=== PATIENT | female | born 1965 | race Caucasian/White ===

== ENCOUNTER 2018-08-24 05:49 | Observation (INO) | payer BC ==
[2018-08-24] MEDS ORDERED: Acetaminophen 500 MG Tab PO ONE (06:15)
[2018-08-24] MEDS ORDERED: Scopolamine 1.5 MG Transdermal Patch TOP SCH (06:15)
[2018-08-24] MEDS ORDERED: Gabapentin 300 MG Cap PO ONE (06:15)
[2018-08-24] MEDS: Nozin Nasal Sanitizer NASBOTH SCH ×3 (06:18→20:25)
[2018-08-24] MEDS: Lactated Ringers 1,000 ML IV SCH ×2 (06:18→22:24)
[2018-08-24] MEDS ORDERED: Povidone-Iodine 10% Soln 118.25 ML Bottle ONE (06:35)
[2018-08-24] MEDS ORDERED: ceFAZolin 2 GM in Premix Bag 1 BAG IV ONE (07:30)
[2018-08-24] MEDS ORDERED: Ondansetron 4 MG/2 ML SDV ONE (07:31)
[2018-08-24] MEDS ORDERED: Dexamethasone 4 MG/ML SDV ONE (07:31)
[2018-08-24] MEDS ORDERED: Propofol 200 MG/20 ML SDV ONE (07:31)
[2018-08-24] MEDS ORDERED: Glycopyrrolate 0.2 MG/ML 5 ML MDV ONE (07:31)
[2018-08-24] MEDS ORDERED: Neostigmine Methylsulfate 1 MG/ML 5 ML Syringe ONE (07:31)
[2018-08-24] MEDS ORDERED: Succinylcholine 200 MG/10 ML MDV ONE (07:31)
[2018-08-24] MEDS ORDERED: Rocuronium 50 MG/5 ML Vial ONE (07:31)
[2018-08-24] MEDS ORDERED: fentaNYL 250 MCG/5 ML SDV ONE (07:32)
[2018-08-24] MEDS ORDERED: Acetaminophen/HYDROcodone 325-5 MG Tab PO PRN (09:02)
[2018-08-24] MEDS ORDERED: Acetaminophen 325 MG Tab PO PRN (09:02)
[2018-08-24] MEDS ORDERED: Cyclobenzaprine 10 MG Tab PO PRN (09:06)
[2018-08-24] MEDS ORDERED: fentaNYL 100 MCG/2 ML SDV ONE (09:07)
[2018-08-24] MEDS ORDERED: hydrOXYzine HCl 100 MG/2 ML SDV IM ONE (09:30)
[2018-08-24] MEDS: Morphine 2 MG/ML Syringe IVPUSH PRN ×7 (09:39→17:13)
--- NOTE | 2018-08-24 10:38 | CR ---
Knee 1V or 2V Lt CLINICAL HISTORY: Postop arthroplasty FINDINGS: 3 views left knee show a medial hemiprosthesis. Components appear well seated. There is some periarticular patellar spurring. Impression: Patient status post placement of the medial knee hemiarthroplasty Osteoarthritic changes
[2018-08-24] MEDS: Acetaminophen/oxyCODONE 325-5 MG Tab PO PRN ×3 (10:42→20:24)
[2018-08-24] MEDS: SCOPOLAMINE PATCH CHECK TOP SCH (12:12)
--- NOTE | 2018-08-24 14:52 | PCM.OPNOTE ---
- General Post-Op/Procedure Note Date of Surgery/Procedure: 08/24/18 Operative Procedure(s): left knee, medial unicompartmental arthroplasty Findings: End stage OA with complete articular cartilage loss medial compartment. Pre Op Diagnosis: OA left knee, medial compartment Post-Op Diagnosis: same Primary Surgeon: Vignesh GOLDEN in mLs: 30 Complications: None Condition: Good Free Text/Narrative:: Intake & Output 08/23/18 08/24/18 08/24/18 22:59 06:59 14:59 Intake Total 240 Output Total 350 Balance -110 indications: Juliette is a 53-year-old female with a history of progressive left knee pain. Pain has gotten significantly worse over the past couple of months. She has failed conservative treatment.X-rays MRI and exam are consistent with end-stage osteoarthritis of the medial compartment of the knee.She now presents for medial unicompartmental arthroplasty. Risks, benefits and potential complications were discussed. She agrees to proceed. Procedure: After adequate anesthesia was obtained patient was placed supine with a tourniquet about the left upper thigh. Left leg was prepped and draped in a sterile fashion. The leg is exsanguinated and tourniquet inflated to 300 mg of mercury pressure. Incision is made just medial of midline from the superior pole of the patella to the tibial tubercle. This is carried down through the subcutaneous tissues. A medial parapatellar arthrotomy is performed. Mild effusion is present. Anterior horn of the medial meniscus is excised.Osteophyte is present along the medial edge of the femoral condyle and complete articular cartilage loss is present throughout the femoral condyle. An oscillating saw is used to remove the anterior lip of the tibia.The leg is extended and the extra medullary alignment jig is placed. This is secured with one pin in the tibia alignment and tension is set and the femoral and tibial guides are then secured with additional pins. Distal femoral cut is made with an oscillating saw. The femoral jig is removed.The knee is then flexed and proximal tibia is resected The jig was removed.Proximal tibia is sized to a #2 component. Femur is sized to aD component.Cutting jig is securedholes and remaining femoral cuts are then made. Tibial trial is tamped into position. Pedicle holes are drilled. The knee is then trialed with an 8 mm spacer.This provides excellent balance in flexion and extension with a 2 mm gap in both flexion and extension. Trials are removed. The knee is thoroughly irrigated with pulse lavage.The cut surfaces are dried andcomponents are cemented in place. Excess cement is removed.The knee is then held in full extension as the cement cures with the 8 mm spacer and the 2 [address].once the cement had cured the trial was removed and the final polyethylene is snapped into position. Balance is checked once again with excellent In flexion and extension.Knee is irrigated.Capsule was then closed with #1 Ethibond in a running fashion. Skin is closed with 2-0 Vicryl and 3-0 Monocryl. Steri-Strips are applied. A light compressive dressing is then placed. Patient tolerated the procedure well and there were no complications and she was taken from the operating room in stable condition.
[2018-08-24] MEDS: ceFAZolin 1 GM in Premix Bag 1 BAG IV SCH ×2 (14:55→22:24)
[2018-08-24] MEDS: Docusate Sodium 100 MG Cap PO PRN (17:13)
[2018-08-24] MEDS ORDERED: Nozin Nasal Sanitizer NASBOTH SCH (21:00)
[2018-08-25] MEDS: Acetaminophen/oxyCODONE 325-5 MG Tab PO PRN ×6 (02:37→23:20)
[2018-08-25] MEDS: Morphine 2 MG/ML Syringe IVPUSH PRN ×2 (03:29→09:16)
[2018-08-25] MEDS: buPROPion 150 MG Tab.ER PO SCH (08:00)
[2018-08-25] MEDS: Losartan 50 MG Tab PO SCH (08:00)
[2018-08-25] MEDS: Aspirin 81 MG Tab.EC PO SCH (08:00)
[2018-08-25] MEDS: Nozin Nasal Sanitizer NASBOTH SCH ×2 (08:00→21:00)
[2018-08-25] MEDS: SCOPOLAMINE PATCH CHECK TOP SCH (08:02)
[2018-08-25] MEDS ORDERED: Non-Formulary Medication 1 Each (Levothyroxine Sodium [Synthroid] 150 MCG) PO SCH (09:00)
[2018-08-25] MEDS: Docusate Sodium 100 MG Cap PO PRN ×2 (09:24→19:43)
[2018-08-26] MEDS: Acetaminophen/oxyCODONE 325-5 MG Tab PO PRN ×3 (03:25→11:39)
[2018-08-26 08:39] VITALS: BP 161/69
[2018-08-26] MEDS: Nozin Nasal Sanitizer NASBOTH SCH (08:41)
[2018-08-26] MEDS: Aspirin 81 MG Tab.EC PO SCH (08:41)
[2018-08-26] MEDS: buPROPion 150 MG Tab.ER PO SCH (08:41)
[2018-08-26] MEDS: Losartan 50 MG Tab PO SCH (08:41)
[2018-08-26] MEDS: SCOPOLAMINE PATCH CHECK TOP SCH (08:44)
== END 2018-08-26 12:45 | disposition home or self-care (01) ==
LOC: JP.SDS 05:49 → JP.2SS 09:02 → UNDOADMIN 09:02 → JP.2SS 09:02 → JP.SDS 08-25 11:10 → JP.2SS 08-25 11:11 → JP.MS 08-25 11:11 → JP.2SS 08-26 12:45 → UNDODISIN 08-26 12:45 → JP.SDS 08-26 12:45
PROVIDERS: ADMIT Specialist; ATTEND Specialist
DX: M17.12 Unilateral primary osteoarthritis, left knee (principal); M25.462 Effusion, left knee; I10 Essential (primary) hypertension; I45.10 Unspecified right bundle-branch block; E05.00 Thyrotoxicosis with diffuse goiter without thyrotoxic crisis or storm; E03.9 Hypothyroidism, unspecified; E78.2 Mixed hyperlipidemia; E66.01 Morbid (severe) obesity due to excess calories; Z68.42 Body mass index [BMI] 45.0-49.9, adult; Z88.8 Allergy status to other drugs, medicaments and biological substances; Z87.891 Personal history of nicotine dependence; Z79.899 Other long term (current) drug therapy
CPT/HCPCS: 27446; 73560; 96361; 96365; 96366; 97110; 97112; 97116; 97161; 97530; 97535; A9270; C1713; G0378; J0330; J0690; J1100; J2270; J2405; J2704; J2710; J3010; J3410; J3490; J7120; C1776

== ENCOUNTER 2022-09-18 00:59 | Emergency (ER) | payer BC ==
[2022-09-18] MEDS ORDERED: Sodium Chloride 0.9% 10 ML Syringe FLUSH PRN (01:26)
[2022-09-18] MEDS ORDERED: Pantoprazole 40 MG Vial IVPUSH ONE (01:34)
[2022-09-18] MEDS ORDERED: Sucralfate 1 GM Tab PO ONE (01:34)
[2022-09-18 01:48] LABS: BASOPHILS ABSOLUTE AUTO 0.05 K/uL (0.00-0.10); BASOPHILS PERCENT AUTO 0.9 % (0.1-1.3); EOSINOPHILS ABSOLUTE AUTO 0.15 K/uL (0.00-0.40); EOSINOPHILS PERCENT AUTO 2.8 % (0.0-5.4); HEMATOCRIT 41.8 % (34.3-46.0); HEMOGLOBIN 14.1 g/dL (11.2-15.5); IMMATURE GRAN PERCENT AUTO 0.4 % (0.0-0.7); LYMPHOCYTES ABSOLUTE AUTO 2.26 K/uL (0.8-3.3); LYMPHOCYTES PERCENT AUTO 41.5 % (11.4-47.7); MEAN CORPUSCULAR HEMOGLOBIN 29.8 pg (31.6-35.5); MEAN CORPUSCULAR HGB CONC 33.7 g/dL (31.6-35.5); MEAN CORPUSCULAR VOLUME 88.4 fL (81.4-99.0); MONOCYTES ABSOLUTE AUTO 0.43 K/uL (0.20-0.90); MONOCYTES PERCENT AUTO 7.9 % (3.3-12.6); NEUTROPHILS ABSOLUTE AUTO 2.54 K/uL (1.0-7.6); NEUTROPHILS PERCENT AUTO 46.5 % (40.0-78.1); PLATELET COUNT,PLT 184 K/uL (130-375); RED BLOOD CELL COUNT 4.73 M/uL (3.77-5.24); WHITE BLOOD CELL COUNT,WBC 5.5 K/uL (3.2-11.0)
[2022-09-18 01:58] LABS: ALANINE AMINOTRANSFERASE,ALT 21 U/L (12-78); ALBUMIN 3.2 g/dL (3.4-5.0); ALKALINE PHOSPHATASE 66 U/L (46-116); ASPARTATE AMNIOTRANSFERASE,AST 19 U/L (15-37); BILIRUBIN TOTAL 0.6 mg/dL (0.2-1.0); BLOOD UREA NITROGEN,BUN 16 mg/dL (7-18); CALCIUM 8.3 mg/dL (8.5-10.1); CARBON DIOXIDE,CO2 29 mmol/L (21-32); CHLORIDE,CL 101 mmol/L (100-108); CREATININE 0.9 mg/dL (0.6-1.0); EST CRCL DRUG DOSING (CG) 55.68 mL/min; ESTIMATED GFR 74 mL/min (>60); GLUCOSE RANDOM 160 mg/dL (74-106); LIPASE 121 U/L (73-393); PROTEIN TOTAL,TP 6.3 g/dL (6.4-8.2); SODIUM,NA 137 mmol/L (140-148)
[2022-09-18 02:26] LABS: ANION GAP 9.8 mmol/L (5.0-14.0); IMMATURE GRAN ABSOLUTE AUTO 0.02 K/uL (0.00-0.23); POTASSIUM,K 2.8 mmol/L (3.6-5.2)
[2022-09-18] MEDS ORDERED: Potassium Chloride 20 MEQ Tab.ER PO ONE (02:37)
[2022-09-18] MEDS ORDERED: Magnesium Oxide 400 MG Tab PO ONE (02:38)
[2022-09-18 02:58] VITALS: BP 150/76; PULSE 81
== END 2022-09-18 03:38 | disposition home or self-care (01) ==
LOC: JP.ED 00:59
DX: K29.70 Gastritis, unspecified, without bleeding (principal); T39.395A Adverse effect of other nonsteroidal anti-inflammatory drugs [NSAID], initial encounter; I45.2 Bifascicular block; E87.6 Hypokalemia; R73.9 Hyperglycemia, unspecified; Z88.8 Allergy status to other drugs, medicaments and biological substances
CPT/HCPCS: 36415; 74019; 80053; 83690; 84484; 85025; 93005; 99285; A9270; C9113; J3490; 93010; 99283

== ENCOUNTER 2023-11-10 09:39 | Inpatient (IN) | payer BC ==
[~2023-11-10 09:39] MED LIST: Midazolam 1 MG/ML 2 ML SDV ONE; Propofol 200 MG/20 ML SDV ONE; fentaNYL 100 MCG/2 ML SDV ONE
[2023-11-10 10:05] LABS: BASOPHILS ABSOLUTE AUTO 0.05 K/uL (0.00-0.10); BASOPHILS PERCENT AUTO 0.8 % (0.1-1.3); EOSINOPHILS ABSOLUTE AUTO 0.19 K/uL (0.00-0.40); EOSINOPHILS PERCENT AUTO 3.1 % (0.0-5.4); HEMATOCRIT 42.6 % (34.3-46.0); HEMOGLOBIN 14.6 g/dL (11.2-15.5); IMMATURE GRAN ABSOLUTE AUTO 0.02 K/uL (0.00-0.23); IMMATURE GRAN PERCENT AUTO 0.3 % (0.0-0.7); LYMPHOCYTES ABSOLUTE AUTO 2.06 K/uL (0.8-3.3); LYMPHOCYTES PERCENT AUTO 33.1 % (11.4-47.7); MEAN CORPUSCULAR HEMOGLOBIN 29.6 pg (31.6-35.5); MEAN CORPUSCULAR HGB CONC 34.3 g/dL (31.6-35.5); MEAN CORPUSCULAR VOLUME 86.2 fL (81.4-99.0); MONOCYTES ABSOLUTE AUTO 0.41 K/uL (0.20-0.90); MONOCYTES PERCENT AUTO 6.6 % (3.3-12.6); NEUTROPHILS ABSOLUTE AUTO 3.49 K/uL (1.0-7.6); NEUTROPHILS PERCENT AUTO 56.1 % (40.0-78.1); PLATELET COUNT,PLT 212 K/uL (130-375); RED BLOOD CELL COUNT 4.94 M/uL (3.77-5.24); WHITE BLOOD CELL COUNT,WBC 6.2 K/uL (3.2-11.0)
[2023-11-10 10:25] LABS: A/G RATIO 0.9 (1.2-2.2); ALANINE AMINOTRANSFERASE,ALT 26 U/L (12-78); ALBUMIN 3.2 g/dL (3.4-5.0); ALKALINE PHOSPHATASE 79 U/L (46-116); ANION GAP 11.1 mmol/L (5.0-14.0); ASPARTATE AMNIOTRANSFERASE,AST 21 U/L (15-37); BILIRUBIN TOTAL 0.5 mg/dL (0.2-1.0); BLOOD UREA NITROGEN,BUN 19 mg/dL (7-18); CARBON DIOXIDE,CO2 28 mmol/L (21-32); CHLORIDE,CL 104 mmol/L (100-108); CREATININE 0.9 mg/dL (0.6-1.0); ESTIMATED GFR 73 mL/min (>60); GLUCOSE RANDOM 114 mg/dL (74-106); POTASSIUM,K 4.1 mmol/L (3.6-5.2); PROTEIN TOTAL,TP 6.7 g/dL (6.4-8.2); SODIUM,NA 139 mmol/L (140-148)
[2023-11-10] MEDS: Nozin Nasal Sanitizer NASBOTH SCH (10:26)
[2023-11-10] MEDS ORDERED: oxyCODONE 5 MG Tab PO PRN (10:39)
[2023-11-10] MEDS ORDERED: Docusate Sodium 100 MG Cap PO PRN (10:40)
[2023-11-10] MEDS ORDERED: Magnesium Hydroxide 400 MG/5 ML Susp 30 ML Cup PO PRN (10:40)
[2023-11-10] MEDS: Lactated Ringers 1,000 ML IV SCH (11:15)
[2023-11-10] MEDS ORDERED: Lactated Ringers 1,000 ML IV SCH (13:00)
[2023-11-10] MEDS: ceFAZolin 2 GM in Premix Bag 1 BAG IV ONE (13:25)
[2023-11-10] MEDS ORDERED: Midazolam 1 MG/ML 2 ML SDV ONE (13:41)
[2023-11-10] MEDS ORDERED: fentaNYL 100 MCG/2 ML SDV ONE (13:52)
[2023-11-10] MEDS: Bupivacaine 0.5% 50 ML MDV ONE (14:17)
[2023-11-10] MEDS ORDERED: Lactated Ringers 1,000 ML ONE (14:26)
[2023-11-10] MEDS ORDERED: Propofol 200 MG/20 ML SDV ONE (14:43)
[2023-11-10] MEDS: oxyCODONE 5 MG Tab PO PRN (16:41)
[2023-11-10] MEDS: Sodium Chloride 0.9% 1,000 ML IV SCH (16:41)
[2023-11-10] MEDS: Ketorolac 15 MG/ML SDV IVPUSH PRN (17:21)
[2023-11-10] MEDS: Acetaminophen 325 MG Tab PO SCH (17:21)
[2023-11-10] MEDS: Morphine 2 MG/ML SYRINGE IVPUSH PRN (18:05)
[2023-11-10] MEDS: ceFAZolin 2 GM in Premix Bag 1 BAG IV SCH (19:36)
[2023-11-10] MEDS: Ondansetron 4 MG/2 ML SDV IVPUSH PRN (20:32)
[2023-11-10] MEDS: Calcium Carbonate 500 MG Tab.Chew PO SCH (20:50)
[2023-11-10] MEDS: traZODone 50 MG Tab PO SCH (20:50)
[2023-11-10] MEDS ORDERED: Non-Formulary Medication 1 Each (Etodolac [Etodolac] 400 MG Tablet) PO SCH (21:00)
[2023-11-10] MEDS ORDERED: Nozin Nasal Sanitizer NASBOTH SCH (21:00)
[2023-11-11] MEDS: Levothyroxine 25 MCG Tab PO SCH (08:21)
[2023-11-11] MEDS: Vitamin B Complex Tab PO SCH (08:22)
[2023-11-11] MEDS: Levothyroxine 100 MCG Tab PO SCH (08:22)
[2023-11-11] MEDS: Magnesium Oxide 400 MG Tab PO SCH (08:22)
[2023-11-11] MEDS: Cholecalciferol (Vitamin D3) 25 MCG Tab PO SCH (08:22)
[2023-11-11] MEDS: Pantoprazole 40 MG Tab.CR PO SCH (08:22)
[2023-11-11] MEDS: Multivitamins with Iron/Calcium/Folic Acid/Minerals Tab PO SCH (08:22)
[2023-11-11] MEDS: buPROPion 150 MG Tab.ER PO SCH (08:22)
[2023-11-11] MEDS: Aspirin 325 MG Tab.EC PO SCH (08:22)
[2023-11-11] MEDS: Losartan 50 MG Tab PO SCH (08:23)
[2023-11-11] MEDS: Metoprolol Succinate 25 MG Tab.ER PO SCH (08:25)
[2023-11-11] MEDS ORDERED: PHENTERMINE HCL 30 MG PO SCH (09:00)
[2023-11-11] MEDS ORDERED: Acetaminophen/HYDROcodone 325-5 MG Tab PO PRN (14:51)
[2023-11-11] MEDS: Acetaminophen/HYDROcodone 325-10 MG Tab PO PRN (16:10)
[2023-11-12 06:06] VITALS: BP 185/73; PULSE 78
== END 2023-11-12 10:56 | disposition home or self-care (01) | DRG 302 ==
LOC: JP.SDS 09:39 → JP.MS 10:41 → JP.SDS 11-11 14:52 → JP.OB 11-11 15:38 → JP.MS 11-11 16:16
PROVIDERS: ADMIT Specialist; ATTEND Specialist
PROC: 0SRC0L9 Replacement of Right Knee Joint with Medial Unicondylar Synthetic Substitute, Cemented, Open Approach (ICD-10-PCS; principal; 2023-11-10 12:30)
DX: M17.11 Unilateral primary osteoarthritis, right knee (principal); I10 Essential (primary) hypertension; Z88.8 Allergy status to other drugs, medicaments and biological substances; Z86.79 Personal history of other diseases of the circulatory system
CPT/HCPCS: 01400-QZ; 36415; 73560-26-RT; 73560-RT; 80053; 85025; 97110-GP; 97116-GP; 97161-GP; 97530-GP; A9270-GY; C1713; C1776; J0665; J0690; J1885; J2250; J2270; J2405; J2704; J3010; J7030; J7120

== ENCOUNTER 2023-12-23 20:52 | Emergency (ER) | payer BC ==
[2023-12-23 21:07] VITALS: BP 196/96; PULSE 106
== END 2023-12-23 21:23 | disposition home or self-care (01) ==
LOC: JP.ED 20:52
DX: R23.3 Spontaneous ecchymoses (principal); I10 Essential (primary) hypertension; E03.9 Hypothyroidism, unspecified; Z86.16 Personal history of COVID-19; Z90.49 Acquired absence of other specified parts of digestive tract; Z79.890 Hormone replacement therapy; Z79.899 Other long term (current) drug therapy; Z88.8 Allergy status to other drugs, medicaments and biological substances
CPT/HCPCS: 99282